=== PATIENT | male | born 1990 | race Caucasian/White ===

== ENCOUNTER 2017-03-10 19:51 | Emergency (ER) | payer OTHER ==
[2017-03-10 19:56] VITALS: BP 167/111; TEMP 98.2; BMI 34.2
[2017-03-10] MEDS ORDERED: DECADRON 4 MG/ML SDV IM STA (20:06)
[2017-03-10] MEDS ORDERED: TORADOL IM STA (20:06)
--- NOTE | 2017-03-10 20:11 | ED.PDOC ---
General ED Provider: Dr. PINKY OSEI Chief Complaint: Back Pain Stated Complaint: Been hurting in the left lower back pain and pain is going to left leg. Time Seen by Physician: 20:08 Mode of Arrival: Walk-In Information Source: Patient Primary Care Provider: AALIYAH FENTON Nursing and Triage Documentation Reviewed and Agree: Yes Musculoskeletal Complaint Exam - Back Pain Complaint/Exam Mechanism of Injury: Reports: No known trauma Symptoms Are: Still present Timing: Constant Episodes Lasting: Weeks Initial Severity: Moderate Current Severity: Moderate Location: Reports: Discrete Character: Reports: Aching, Throbbing Aggravating: Reports: Movements, Lifting, Bending Alleviating: Reports: None Associated Signs and Symptoms: Reports: Flank pain. Denies: Swelling, Redness, Bruising, Fever, Weakness, Numbness, Tingling, Abdominal pain, Bladder incontinence, Bowel incontinence, Weight loss, Pain with weight bearing Related History: Reports: Similar episode TAD Risk Factors: Reports: None AAA Risk Factors: Reports: None Cauda Equina Risk Factors: Reports: None Epidural Abcess Risk Factors: Reports: None Related Surgical History: Reports: None Focal Tenderness: Yes Paraspinal Muscle Tenderness: Yes Paraspinal Muscle Spasm: Yes Scoliosis: No Lordosis: No SLR Test: Right Negative, Left Negative Hip Motion Testing Pain: Right Negative, Left Negative Focal Weakness: Present: None Focal Sensory Loss: Present: None Differential Diagnoses: Herniated Disk, Strain, Sprain Review of Systems - Review Of Systems Constitutional: Reports: No symptoms Eyes: Reports: No symptoms Ears, Nose, Mouth, Throat: Reports: No symptoms Respiratory: Reports: No symptoms Cardiac: Reports: No symptoms GI: Reports: No symptoms : Reports: No symptoms Musculoskeletal: Reports: Back pain, Muscle pain Skin: Reports: No symptoms Neurological: Reports: No symptoms Endocrine: Reports: No symptoms Hematologic/Lymphatic: Reports: No symptoms All Other Systems: Reviewed and Negative Past Medical History - Past Medical History Previously Healthy: Yes Endocrine: Reports: None Cardiovascular: Reports: None Respiratory: Reports: None Hematological: Reports: None Gastrointestinal: Reports: None Genitourinary: Reports: None Neuro/Psych: Reports: None Musculoskeletal: Reports: None Cancer: Reports: None - Surgical History General Surgical History: Reports: Orthopedic (Knee surgery x 2 ) - Family History Family History: Reports: None - Social History Smoking Status: Former smoker, Never smoker Hx Substance Use: No Alcohol Screening: None - Immunizations Tetanus Shot up to Date: Yes Physical Exam - Physical Exam Appearance: Well-appearing, Obese Eyes: CARLA, EOMI, Conjunctiva clear ENT: Ears normal, Nose normal, Oropharynx normal Respiratory: Airway patent, Breath sounds clear, Breath sounds equal, Respirations nonlabored Cardiovascular: RRR, Pulses normal, No rub, No murmur GI/: Soft, Nontender, No masses, Bowel sounds normal, No Organomegaly Musculoskeletal: No edema, No calf tenderness, Limited ROM (left lower rib pain) , Limited strength Skin: Warm, Dry, Normal color Neurological: Sensation intact, Motor intact, Reflexes intact, Cranial nerves intact, Alert, Oriented Psychiatric: Affect appropriate, Mood appropriate Interpretation - Radiology Interpretation Radiology Interpretation By: Radiologist Radiology Results: Positive Exam Interpreted: CT Scan Critical Care Note - Critical Care Note Total Time (mins): 0 Course - Course Orders, Labs, Meds: Orders Category Date Time Status Dexamethasone 4 mg/ml Inj [Decadron 4 mg/ml Sdv] MEDS 03/10/17 20:06 Discontinued 4 mg IM ONCE STA Ketorolac Tromethamine [Toradol] MEDS 03/10/17 20:06 Discontinued 30 mg IM ONCE STA CT CHEST W/O CONTRAST Stat RADS 03/10/17 20:[address] LUMBAR SPINE W/O CONTRAST Stat RADS 03/10/17 20:06 Completed Medications Discontinued Medications Generic Name Dose Route Start Last Admin Trade Name Freq PRN Reason Stop Dose Admin Dexamethasone Sodium Phosphate 4 mg 03/10/17 20:06 03/10/17 21:02 Decadron 4 Mg/Ml Sdv IM 03/10/17 20:07 4 mg ONCE STA Administration Ketorolac Tromethamine 30 mg 03/10/17 20:06 03/10/17 21:02 Toradol IM 03/10/17 20:07 30 mg ONCE STA Administration Vital Signs: Temp Pulse Resp BP Pulse Ox 03/10/17 19:52 98.2 F 107 H 18 167/111 H 97 Departure - Departure Time of Disposition: 21:06 Disposition: HOME SELF-CARE Discharge Problem: Backache Osteoarthritis of lumbar spine Qualifiers: Spinal osteoarthritis complication: with radiculopathy Qualifier Code: (M47.26 ) Other spondylosis with radiculopathy, lumbar region Instructions: Lumbar Radiculopathy (ED) Condition: Stable Pt referred to PMD for follow-up: Yes Additional Instructions: rest no pushing or pulling Prescriptions: Hydrocodone/Acetaminophen [[employer] 5-325 Tablet] 1 tab PO TID PRN #12 tablet PRN Reason: PAIN Prednisone 10 mg PO BIDWM #14 tablet Allergies/Adverse Reactions: Allergies No Known Allergies Allergy (Verified 03/10/17 19:55) Home Medications: Ambulatory Orders Hydrocodone/Acetaminophen [[employer] [place] 5-325 Tablet] 1 tab PO TID PRN #12 tablet 03/10 Prednisone 10 mg PO BIDWM #14 tablet 03/10/17 Disposition Discussed With: Patient, Family
--- NOTE | 2017-03-10 20:46 | CT ---
EXAM: CT scan thorax without contrast HISTORY: Left-sided pain COMPARISON: None. FINDINGS: Contiguous axial images obtained through the thorax without contrast utilizing 5-mm colli mation. Sagittal and coronal reconstructions were imaged and reviewed.. The thoracic inlet is unre markable. The heart is normal in size without pericardial effusion. The lungs are clear bilaterall y.. Review of bone windows reveals no evidence of lytic or blastic lesions. The fatty infiltration is seen within the liver. IMPRESSION: No acute intrathoracic findings. Fatty liver
--- NOTE | 2017-03-10 20:52 | CT ---
EXAM: CT scan lumbar spine HISTORY: Back and left leg pain COMPARISON: None. FINDINGS: Contiguous axial images obtained through the lumbar spine utilizing 3-mm collimation. Sa gittal and coronal reconstructions were imaged and reviewed.. The vertebral bodies are normal in he ight and alignment. There is a limbus vertebrae at L5... At L2-L3 there is a mild non compressive c oncentric disc bulge. And L3-L4 there is mild concentric disc bulge with facet arthropathy. At L4- L5 there is mild disc bulge with facet arthropathy.. At L5-S1 there is a concentric disc bulge with moderate facet arthropathy. Central canal and foramen are patent throughout. IMPRESSION: Multilevel non compressive concentric disc bulge with facet arthropathy. No acute findings
== END 2017-03-10 21:15 | disposition home or self-care (01) ==
LOC: ED 19:51
DX: M47.26 Other spondylosis with radiculopathy, lumbar region (principal)
CPT/HCPCS: 96372; 99283

== ENCOUNTER 2017-06-16 16:36 | Outpatient (CLI) ==
--- NOTE | 2017-06-16 16:52 | DI ---
Exam: Three x-rays of the left knee. Comparison: 08/04/2011. MRI performed on 08/05/2011 Reason for exam: Pain. FINDINGS: Orthopedic fixation is seen in the femoral condyle after cruciate ligament repair. There is mild degenerative disease with tibial spurring and arthrosis. No large joint effusion. No acute fracture or dislocation. Impression: 1. No acute fracture or dislocation in the left knee. 2. Mild degenerative disease.
--- NOTE | 2017-06-16 16:54 | DI ---
EXAM: Right knee, two views, 06/16/2017 HISTORY: Pain COMPARISON: None. FINDINGS / IMPRESSION: Postoperative changes are present. Indwelling hardware is present within the distal femur proximal tibia. Hardware appears well positioned. Minimal chronic osteoarthritic degenerative change. There is no fracture or subluxation. The extensor mechanism is intact. No acute osseous abnormality.
== END 2017-06-16 16:37 | disposition home or self-care (01) ==
LOC: RAD 16:36
PROVIDERS: ATTEND Physician Assistant Medical
DX: M25.562 Pain in left knee (principal); M25.561 Pain in right knee